=== PATIENT | female | born 1955 | race African-American/Black ===

== ENCOUNTER → 2017-01-10 | Outpatient (CLI) | payer OTHER ==
[~2017-01-10] VITALS: Ht 161.3 cm; Wt 88.0 kg
[~2017-01-10] MED LIST: ALEVE220 MG PO; GLUCOPHAGE500 MG PO; LO-DOSE ASPIRIN81 M1 PO; NORVASC5 MG PO; TENORMIN50 MG PO; ZANTAC300 MG PO
[2017-01-10 12:39] LABS: POINT-OF-CARE METER ID UU14107333
[2017-01-10 14:20] LABS: POINT-OF-CARE METER ID UU13113819
== END | disposition home or self-care (01) ==
LOC: AMB 12:04
PROVIDERS: Internal Medicine
DX: Z12.11 Encounter for screening for malignant neoplasm of colon (principal); D12.2 Benign neoplasm of ascending colon; K63.5 Polyp of colon; K64.8 Other hemorrhoids; E11.9 Type 2 diabetes mellitus without complications; I10 Essential (primary) hypertension; E87.6 Hypokalemia; Z79.84 Long term (current) use of oral hypoglycemic drugs; K21.9 Gastro-esophageal reflux disease without esophagitis; Z82.49 Family history of ischemic heart disease and other diseases of the circulatory system; Z88.8 Allergy status to other drugs, medicaments and biological substances
CPT/HCPCS: 82948; 88305; 93005; J2250; J3010